=== PATIENT | female | born 1955 | race Caucasian/White ===

== ENCOUNTER → 2018-05-05 | Outpatient (CLI) | payer BC ==
--- NOTE | ~2018-05-05 | 2DMMODE ---
[place] [address] 2 D/M-MODE ECHOCARDIOGRAM Name: AARON AVERY Room #: REG [facility]#: [id number] Admission: 05/05/18 Attend Phys: Sajan Webster Discharge: Date of : 57 Date of Service: 05/05/18 1445 Report #: [id number] THIS REPORT FOR: //name// APPROVED REPORT Study performed: 05/05/2018 12:58:49 EXAM: Comprehensive 2D, Doppler, and color-flow Echocardiogram Patient Location: Echo lab Status: routine BSA: 1.72 HR: 63 bpm BP: 104/63 mmHg Rhythm: NSR Other Information Study Quality: Good Indications Abnormal EKG 2D Dimensions RVDd: 20.80 mm IVSd: 8.00 (7-11mm) LVOT Diam: 22.42 (18-24mm) LVDd: 56.34 mm PWd: 6.67 (7-11mm) Ascending Ao: 32.06 (22-36mm) LVDs: 41.66 (25-40mm) Aortic Root: 33.94 mm IVC: 21.00 mm Volumes Left Atrial Volume (Systole) Single Plane 4CH: 20.09 mL Single Plane 2CH: 25.39 mL LA ESV Index: 15.00 mL/m2 Aortic Valve AoV Peak Shahab.: 1.41 m/s AO Peak Gr.: 7.97 mmHg LVOT Max P.13 mmHg LVOT Max V: 0.88 m/s HERRERA Vmax: 2.47 cm2 AI Vmax: 4.25 m/s AI Maury: 1.97 m/s2 AI PHT: 626.02 ms Mitral Valve [employer] [address] [place] [address] 2 D/M-MODE ECHOCARDIOGRAM Name: AARON AVERY Room #: [facility]#: [id number] Admission: 05/05/18 Attend Phys: Sajan Webster Discharge: Date of : 57 Date of Service: 05/05/18 1445 Report #: [id number] E/A Ratio: 0.7 MV Decel. Time: 292.43 ms MV E Max Shahab.: 0.54 m/s MV A Shahab.: 0.77 m/s MV Max Shahab.: 4.74 m/s MV Mean Shahab.: 3.33 m/s MV PHT: 84.81 ms Pulmonary Valve PV Peak Shahab.: 0.65 m/s PV Peak Gr.: 1.71 mmHg Pulmonary Vein P Vein S: 0.46 m/s P Vein D: 0.52 m/s P Vein S/D Ratio: 0.88 Tricuspid Valve TR Peak Shahab.: 2.00 m/s RAP Estimate: 5.00 mmHg TR Peak Gr.: 16.00 mmHg PA Pressure: 21.00 mmHg Left Ventricle Left ventricle is dilated. There is normal left ventricular wall thickness. Left ventricular systolic function is mildly decreased. LVEF is 45-50%. Mild diastolic dysfunction is present (impaired relaxation pattern). Right Ventricle The right ventricle is normal size. The right ventricular systolic function is normal. Atria The left atrium size is normal. The right atrium size is normal. Aortic Valve The aortic valve is normal in structure. Mild aortic regurgitation. There is no aortic valvular stenosis. Mitral Valve The mitral valve is normal in structure. Mild to moderate mitral regurgitation. No evidence of mitral valve stenosis. Tricuspid Valve The tricuspid valve is normal in structure. Trace to mild tricuspid regurgitation. Estimated PAP of [address] [address] 2 D/M-MODE ECHOCARDIOGRAM Name: AARON AVERY Room #: REG [facility]#: [id number] Admission: 05/05/18 Attend Phys: [facility] Dis[facility]: Date of : 57 Date of Service: 05/05/18 1445 Report #: [id number] Pulmonic Valve Pulmonic valve is not well visualized. Trace pulmonic regurgitation. Great Vessels The aortic root is normal in size. The ascending aorta is normal in size. IVC is normal in size and collapses >50% with inspiration. Pericardium There is no pericardial effusion. <Conclusion> Left ventricle is dilated. LVEF is 45-50%. The aortic valve is normal in structure. Mild aortic regurgitation. The mitral valve is normal in structure. Mild to moderate mitral regurgitation. The tricuspid valve is normal in structure. Trace to mild tricuspid regurgitation. Estimated PAP of 21 mmHg. Pulmonic valve is not well visualized. Trace pulmonic regurgitation. There is no pericardial effusion. <ELECTRONICALLY SIGNED> By: João Dickerson MD 05/05/18 1445 1445 1445 João Dickerson MD /INF
== END ==
LOC: CV 12:42
DX: I08.0 Rheumatic disorders of both mitral and aortic valves (principal)